=== PATIENT | female | born 1995 | race Caucasian/White ===

== ENCOUNTER 2018-10-27 11:59 | Emergency (ER) | payer BC ==
[2018-10-27] MEDS ORDERED: Ondansetron 4 MG/2 ML SDV IVPUSH ONE (14:01)
[2018-10-27] MEDS ORDERED: Sodium Chloride 0.9% 1,000 ML IV ONE (14:01)
[2018-10-27] MEDS ORDERED: Sodium Chloride 0.9% 10 ML Syringe FLUSH PRN (14:01)
[2018-10-27] MEDS ORDERED: diphenhydrAMINE 50 MG/ML SDV IVPUSH ONE (14:01)
--- NOTE | 2018-10-27 14:10 | EDM.PDOC ---
ED HPI GENERAL MEDICAL PROBLEM - General Chief Complaint: Gastrointestinal Problem Stated Complaint: 8 WKS PG. DIZZY,THROWING UP Time Seen by Provider: 10/27/18 13:47 Source of Information: Reports: Patient History Limitations: Reports: No Limitations - History of Present Illness INITIAL COMMENTS - FREE TEXT/NARRATIVE: Patient is a 23-year-old female who is approximately 8 weeks who presents to the ED with severe nausea with vomiting. This has been going on for the past few weeks. States she's been evaluated by her HYDROGEN CELL TENDER at 7 weeks with no concerns. She was started on Zofran to which the patient has been taking and continues to have episodes of emesis. States last night the emesis progressively got worse. She's been experiencing intermittent episodes of vertigo. States she has the sensation of the room spinning with body position changes and also with turning her head left to right. Symptoms come and go. Has not had associated headache, vision changes, or any focal neurological deficits associated with this. She denies any chest pain, shortness of breath, abdominal pain, painful urination, vaginal bleeding, or any additional complaints. She states this morning after vomiting last time at 0600 her urine was quite dark. She was able to drink some vitamin water only to vomit a hour later. Her urine was straw colored with admission to the ED. history 2, para 0, miscarriage 1. She has no additional past medical history and currently taking vitamins, B6, Unisom, and Zofran. She denies smoking, alcohol use, or recreational drugs. Surgical history tonsillectomy, wisdom teeth, and plastic surgery to the lip. HYDROGEN CELL TENDER specialist is Dr. Amado. - Related Data Allergies Allergy/AdvReac Type Severity Reaction Status Date / Time No Known Allergies Allergy Verified 10/27/18 13:20 Home Meds: Home Meds Meclizine [Antivert] 12.5 mg PO TID PRN #21 tab 10/27/18 [Rx] Ondansetron [Zofran ODT] 4 mg PO ASDIRECTED PRN #20 tab.dis 10/27/18 [Rx] Past Medical History - Past Surgical History HEENT Surgical History: Reports: Tonsillectomy Social & Family History - Tobacco Use Smoking Status *Q: Never Smoker Second Hand Smoke Exposure: No - Caffeine Use Caffeine Use: Reports: None - Recreational Drug Use Recreational Drug Use: No ED ROS GENERAL - Review of Systems Review Of Systems: ROS reveals no pertinent complaints other than HPI. ED EXAM - Physical Exam Exam: See Below Exam Limited By: No Limitations General Appearance: Alert, WD/WN, Mild Distress Eye Exam: Bilateral Eye: Nystagmus (none noted), PERRL, Vision Changes (none noted) Ears: Hearing Grossly Normal Nose: Normal Inspection Throat/Mouth: Normal Inspection, Normal Oropharynx, Normal Voice, No Airway Compromise Head: Atraumatic, Normocephalic Neck: Normal Inspection, Supple Respiratory/Chest: No Respiratory Distress, Lungs Clear, Normal Breath Sounds, No Accessory Muscle Use, Chest Non-Tender Cardiovascular: Normal Peripheral Pulses, Regular Rate, Rhythm GI/Abdominal Exam: Normal Bowel Sounds, Soft, Non-Tender, No Organomegaly, No Distention Back Exam: Normal Inspection. No: CVA Tenderness (L), CVA Tenderness (R) Extremities: Normal Inspection, Normal Range of Motion, Non-Tender, No Pedal Edema Neurological: Alert, Oriented, CN II-XII Intact, Normal Cognition, No Motor/ Sensory Deficits Psychiatric: Normal Affect, Normal Mood Skin Exam: Warm, Dry, Intact, Normal Color Course - Vital Signs Last Recorded V/S: Last Vital Signs Temp 98.7 F 10/27/18 13:21 Pulse 72 10/27/18 13:21 Resp 13 10/27/18 13:21 BP 98/68 10/27/18 13:21 Pulse Ox 100 10/27/18 13:21 - Orders/Labs/Meds Orders: Active Orders 24 hr Category Date Time Status Peripheral IV Care [RC] . DIRECTED Care 10/27/18 14:02 Active Peripheral IV Insertion Adult [OM.PC] Routine Oth 10/27/18 14:01 Ordered Labs: Laboratory Tests 10/27/18 10/27/18 10/27/18 Range/Units 13:35 13:35 15:45 WBC 18.76 H (3.98-10.04) K/mm3 RBC 4.68 (3.98-5.22) M/mm3 Hgb 14.1 (11.2-15.7) gm/L Hct 40.5 (34.1-44.9) % MCV 86.5 (79.4-94.8) fl MCH 30.1 (25.6-32.2) pg MCHC 34.8 (32.2-35.5) g/dl RDW Std Deviation 39.0 (36.4-46.3) fL Plt Count 193 (182-369) K/mm3 MPV 13.4 H (9.4-12.3) fl Neutrophils % (Manual) 90 H (40-60) % Band Neutrophils % 0 (0-10) % Lymphocytes % (Manual) 5 L (20-40) % Atypical Lymphs % 0 % Monocytes % (Manual) 4 (2-10) % Eosinophils % (Manual) 0 L (0.7-5.8) % Basophils % (Manual) 1 (0.1-1.2) Platelet Estimate Adequate Plt Morphology Comment RBC Morph Comment Normal Sodium 139 (136-145) mEq/L Potassium 3.8 (3.5-5.1) mEq/L Chloride 104 (98-107) mEq/L Carbon Dioxide 23 (21-32) mEq/L Anion Gap 15.8 H (5-15) BUN 7 (7-18) mg/dL Creatinine 0.7 (0.55-1.02) mg/dL Est Cr Clr Drug Dosing 115.01 mL/min Estimated GFR (MDRD) > 60 (>60) mL/min BUN/Creatinine Ratio 10.0 L (14-18) Glucose 91 (74-106) mg/dL Calcium 9.7 (8.5-10.1) mg/dL Total Bilirubin 0.6 (0.2-1.0) mg/dL AST 53 H (15-37) U/L ALT 139 H (14-59) U/L Alkaline Phosphatase 79 (46-116) U/L C-Reactive Protein 0.3 (<1.0) mg/dL Total Protein 7.3 (6.4-8.2) g/dl Albumin 3.8 (3.4-5.0) g/dl Globulin 3.5 gm/dL Albumin/Globulin Ratio 1.1 (1-2) Lipase 107 (73-393) U/L HCG, Quant 201635.0 mIU/mL Urine Color Yellow (Yellow) Urine Appearance Clear (Clear) Urine pH 6.0 (5.0-8.0) Ur Specific [place] 1.020 (1.005-1.030) Urine Protein Negative (Negative) Urine Glucose (UA) Negative (Negative) Urine Ketones 1+ H (Negative) Urine Occult Blood Negative (Negative) Urine Nitrite Negative (Negative) Urine Bilirubin Negative (Negative) Urine Urobilinogen 0.2 (0.2-1.0) Ur Leukocyte Esterase Negative (Negative) Urine RBC 0-5 (0-5) /hpf Urine WBC 0-5 (0-5) /hpf Ur Squamous Epith Cells 0-5 (0-5) /hpf Urine Bacteria Few (FEW) /hpf Urine Mucus Moderate H (FEW) /hpf Meds: Medications Discontinued Medications Generic Name Dose Route Start Last Admin Trade Name Freq PRN Reason Stop Dose Admin Diphenhydramine HCl 50 mg 10/27/18 14:01 10/27/18 14:19 Benadryl IVPUSH 10/27/18 14:02 50 mg ONETIME ONE Administration Sodium Chloride 1,000 mls @ 999 mls/hr 10/27/18 14:01 10/27/18 14:19 Normal Saline IV 10/27/18 15:01 999 mls/hr ONETIME ONE Administration Ondansetron HCl 4 mg 10/27/18 14:01 10/27/18 14:19 Zofran IVPUSH 10/27/18 14:02 4 mg ONETIME ONE Administration Sodium Chloride 10 ml 10/27/18 14:01 10/27/18 14:20 Saline Flush FLUSH 10 ml ASDIRECTED PRN Administration Keep Vein Open - Re-Assessments/Exams Free Text/Narrative Re-Assessment/Exam: On exam patient has no focal neurological deficits. Mouth is mildly dry. Will order IV with normal saline bolus 1 L, Zofran 4 mg IVP, and Benadryl 50 mg by IV. Initial labs and studies will include: CBC, chem 14, HCG quantitative, CRP, lipase, and urinalysis. Labs reviewed:WBC 18.76, Hgb 14.1, N% 90, N# 0 sodium potassium, chloride, CO2 are normal. AG mildly elevated 15.8. Creatinine 0.7. Glucose 91. AST 53 and ALT are 139. CRP normal. HCG quantitative 257,262. UA positive for ketones and moderate mucus. 1600 Reassessment, patients vitals are stable. She has had no further vertigo episodes and nausea. 1647 Per Nursing staff patient is tolerating the crackers and jello. I will discharge patient home. Return precautions discussed with the patient and . She had no further questions or concerns and agreed with plan. Discharge instructions as documented. Departure - Departure Time of Disposition: 16:59 Disposition: Home, Self-Care 01 Condition: Good Clinical Impression: Vomiting during , Vertigo, test positive, Vomiting Nausea & vomiting Qualifiers: Vomiting type: unspecified Vomiting Intractability: non-intractable Qualified Code(s): R11.2 - Nausea with vomiting, unspecified - Discharge Information Prescriptions: Meclizine [Antivert] 12.5 mg PO TID PRN #21 tab PRN Reason: Dizziness Ondansetron [Zofran ODT] 4 mg PO ASDIRECTED PRN #20 tab.dis PRN Reason: Vomiting Instructions: Eating Plan for Hyperemesis Gravidarum, Hyperemesis Gravidarum, Vertigo, [id number], Warning Signs During , Nausea and Vomiting, Adult Referrals: Sonal Thacker MD [Primary Care Provider] - Forms: ED Department Discharge Additional Instructions: Continue to drink small amounts of liquids more frequently such as: Gatorade, Powerade, Pedialyte, and/or vitamin water. Eat small amounts of crackers, Jell-O , soup as tolerated. Refrain from any items that cause nausea and vomiting. Utilize the Zofran as prescribed for nausea and vomiting. In addition for the intermittent vertigo may utilize meclizine 12.5 mg 3 times a day. PRN. Please call and schedule an appt with HYDROGEN CELL TENDER for this coming week for reevaluation. Please return to the E.D. for any new or worsening symptoms. - My Orders Last 24 Hours: My Active Orders 10/27/18 14:01 Peripheral IV Insertion Adult [OM.PC] Routine 10/27/18 14:02 Peripheral IV Care [RC] . DIRECTED - Assessment/Plan Last 24 Hours: My Active Orders 10/27/18 14:01 Peripheral IV Insertion Adult [OM.PC] Routine 10/27/18 14:02 Peripheral IV Care [RC] . DIRECTED
== END 2018-10-27 17:31 | disposition home or self-care (01) ==
LOC: JD.ED 11:59
DX: O21.9 Vomiting of pregnancy, unspecified (principal); R42 Dizziness and giddiness; Z3A.01 Less than 8 weeks gestation of pregnancy; Z98.890 Other specified postprocedural states
CPT/HCPCS: 36415; 80053; 81001; 83690; 84702; 85007; 85027; 86140; 96361; 96374; 96375; 99283; J1200; J2405; J7040

== ENCOUNTER 2019-06-07 05:14 | Inpatient (IN) | payer BC ==
[2019-06-07] MEDS ORDERED: Calcium Carbonate 500 MG Tab.Chew PO PRN (06:09)
[2019-06-07] MEDS ORDERED: Acetaminophen 325 MG Tab PO PRN (06:09)
[2019-06-07] MEDS ORDERED: Nalbuphine 10 MG/ML Syringe IVPUSH PRN (06:09)
[2019-06-07] MEDS ORDERED: Ondansetron 4 MG/2 ML SDV IVPUSH PRN (06:09)
[2019-06-07] MEDS ORDERED: Sodium Chloride 0.9% 10 ML Syringe FLUSH PRN (06:09)
[2019-06-07] MEDS ORDERED: Oxytocin/Lactated Ringers 10 UNIT/1,000 ML BAG IV SCH ×2 (06:15)
--- NOTE | 2019-06-07 07:25 | PCM.LDHP ---
L&D History of Present Illness - General Date of Service: 06/07/19 Admit Problem/Dx: Patient Status Order with Admit Dx/Problem 06/07/19 06:10 Patient Status [ADT] Routine Admission Diagnosis/Problem Admission Diagnosis/Problem Source of Information: Patient History Limitations: Reports: No Limitations - History of Present Illness Introduction:: Patient is a 24 y/o at 40 4/7 wks present with SROM/early labor. Thinks this started around 2300 yesterday. Small amounts that are slightly yellow. No other issues. - Related Data Allergies/Adverse Reactions: Allergies Allergy/AdvReac Type Severity Reaction Status Date / Time No Known Allergies Allergy Verified 06/07/19 05:25 Home Medications: Home Meds Meclizine [Antivert] 12.5 mg PO TID PRN #21 tab 10/27/18 [Rx] Ondansetron [Zofran ODT] 4 mg PO ASDIRECTED PRN #20 tab.dis 10/27/18 [Rx] Calcium Carbonate [Tums] 500 mg PO 06/07/19 [History] Past Medical History Gastrointestinal History: Reports: GERD [place]UNTER History: Reports: , Spontaneous : 2 Para: 0 LMP (Approximate): - Past Surgical History HEENT Surgical History: Reports: Oral Surgery (tooth extraction), Tonsillectomy Social & Family History - Family History Family Medical History: Noncontributory - Tobacco Use Smoking Status *Q: Never Smoker Second Hand Smoke Exposure: No - Caffeine Use Caffeine Use: Reports: Tea - Alcohol Use Alcohol Use History: No - Recreational Drug Use Recreational Drug Use: No H&P Review of Systems - Review of Systems: Review Of Systems: See Below General: Reports: No Symptoms Pulmonary: Reports: No Symptoms Cardiovascular: Reports: No Symptoms Gastrointestinal: Reports: No Symptoms Genitourinary: Reports: No Symptoms Musculoskeletal: Reports: Back Pain Psychiatric: Reports: No Symptoms Neurological: Reports: No Symptoms L&D Exam - Exam Exam: See Below - Vital Signs Vital Signs: Last Vital Signs Temp 36.6 C 06/07/19 05:32 Pulse 94 06/07/19 05:32 Resp 16 06/07/19 05:32 BP 119/74 06/07/19 05:32 Pulse Ox 99 06/07/19 05:32 Weight: 103.646 kg - OB Specific Contraction Intensity: Mild to Moderate Movement: Active Heart Tones: Present Heart Tones per Min: 145 Heart Rate (FHR) Variability: Moderate (6-25 bmp) Presentation: Vertex - Mir Score Mir Score Cervix Position: Midposition Mir Score Consistency: Soft Mir Score Effacement: >80% Mir Score Dilation: > 5 cm Mir Score Infant's Station: -1 ,0 Mir Score Total: 11 - Exam General: Alert, Oriented, Cooperative Lungs: Clear to Auscultation, Normal Respiratory Effort Cardiovascular: Regular Rate, Regular Rhythm GI/Abdominal Exam: Soft, Non-Tender Genitourinary: Normal external exam Extremities: Normal Inspection Skin: Warm, Dry, Intact - Patient Data Lab Results Last 24 hrs: Laboratory Results - last 24 hr 06/07/19 06/07/19 Range/Units 05:38 06:25 WBC 16.70 H (3.98-10.04) K/mm3 RBC 4.39 (3.98-5.22) M/mm3 Hgb 12.5 D (11.2-15.7) gm/dl Hct 38.2 (34.1-44.9) % MCV 87.0 (79.4-94.8) fl MCH 28.5 (25.6-32.2) pg MCHC 32.7 (32.2-35.5) g/dl RDW Std Deviation 44.7 (36.4-46.3) fL Plt Count 114 L D (182-369) K/mm3 MPV 12.8 H (9.4-12.3) fl Neut % (Auto) 75.8 H (34.0-71.1) % Lymph % (Auto) 13.0 L (19.3-51.7) % [place] % (Auto) 10.1 (4.7-12.5) % Eos % (Auto) 0.5 L (0.7-5.8) Baso % (Auto) 0.2 (0.1-1.2) % Neut # (Auto) 12.66 H (1.56-6.13) K/mm3 Lymph # (Auto) 2.17 (1.18-3.74) K/mm3 [place] # (Auto) 1.68 H (0.24-0.36) K/mm3 Eos # (Auto) 0.09 (0.04-0.36) K/mm3 Baso # (Auto) 0.03 (0.01-0.08) K/mm3 Manual Slide Review Normal smear Membrane Rupture Negative Result Diagrams: 06/07/19 06:25 - Problem List (1) 40 weeks gestation of SNOMED Code(s): 42490545 ICD Code: Z3A.40 - 40 WEEKS GESTATION OF Status: Acute Current Visit: Yes (2) Rh negative state in antepartum period SNOMED Code(s): 260317574 ICD Code: O26.899 - OTH RELATED CONDITIONS, UNSPECIFIED TRIMESTER; Z67.91 - UNSPECIFIED BLOOD TYPE, RH NEGATIVE Status: Acute Current Visit: Yes (3) Rubella non-immune status, antepartum SNOMED Code(s): 650898332 ICD Code: O99.89 - OTH DISEASES AND CONDITIONS COMPL PREG/CHLDBRTH; Z28.3 - UNDERIMMUNIZATION STATUS Status: Acute Current Visit: Yes (4) Premature rupture of membranes SNOMED Code(s): 38143287 ICD Code: O42.90 - TORRES ROM, 7TH0 BETW RUPT & ONST LABR, UNSP WEEKS OF GEST Status: Acute Current Visit: Yes Qualifiers: PROM onset of labor timing: unspecified duration between rupture of membranes and onset of labor PROM gestational age: full term Qualified Code( s): O42.92 - Full-term premature rupture of membranes, unspecified as to length of time between rupture and onset of labor Problem List Initiated/Reviewed/Updated: Yes Orders Last 24hrs: Active Orders 24 hr Category Date Time Status Patient Status [ADT] Routine ADT 06/07/19 06:10 Active Activity as Tolerated [RC] PFP Care 06/07/19 06:10 Active Communication Order [RC] ASDIRECTED Care 06/07/19 06:10 Active Heart Tones [RC] ASDIRECTED Care 06/07/19 06:10 Active Notify Provider [RC] PFP Care 06/07/19 06:10 Active Notify Provider [RC] PRN Care 06/07/19 06:10 Active Peripheral IV Care [RC] . DIRECTED Care 06/07/19 06:10 Active Urinary Catheter Assessment [RC] ASDIRECTED Care 06/07/19 06:09 Active Vital Signs [RC] PER UNIT ROUTINE Care 06/07/19 05:24 Active Vital Signs [RC] PER UNIT ROUTINE Care 06/07/19 06:10 Active Regular Diet [DIET] Diet 06/07/19 Breakfast Active RAPID PLASMA REAGIN,RPR [CHEM] Routine Lab 06/07/19 06:25 Received Acetaminophen [Tylenol] Med 06/07/19 06:09 Active 650 mg PO Q4H PRN Calcium Carbonate [Tums] Med 06/07/19 06:09 Active 1,000 mg PO Q2H PRN Lactated Ringers [Ringers, Lactated] 1,000 ml Med 06/07/19 06:15 Active IV ASDIRECTED Nalbuphine [Nubain] Med 06/07/19 06:09 Active 10 mg IVPUSH Q2H PRN Ondansetron [Zofran] Med 06/07/19 06:09 Active 4 mg IVPUSH Q4H PRN Oxytocin/Lactated Ringers [Pitocin in LR 10 Units/1,000 Med 06/07/19 06:15 Active ML] 10 unit in 1,000 ml IV .CONTINUOUS Oxytocin/Lactated Ringers [Pitocin in LR 10 Units/1,000 Med 06/07/19 06:15 Active ML] 10 unit in 1,000 ml IV TITRATE Sodium Chloride 0.9% [Saline Flush] Med 06/07/19 06:09 Active 10 ml FLUSH ASDIRECTED PRN Electronic Heart Tones Ext w TOCO [WOMSER] Oth 06/07/19 06:10 Ordered Routine Electronic Heart Tones Internal [WOMSER] Per Unit Oth 06/07/19 06:10 Ordered Routine Peripheral IV Insertion Adult [OM.PC] Routine Oth 06/07/19 06:10 Ordered Resuscitation Status Routine Resus Stat 06/07/19 05:24 Ordered Medication Orders Acetaminophen (Tylenol) 650 mg PO Q4H PRN PRN Reason: Pain (Mild 1-3) and fever Calcium Carbonate/Glycine (Tums) 1,000 mg PO Q2H PRN PRN Reason: Indigestion Lactated Ringer's (Ringers, Lactated) 1,000 mls @ 100 mls/hr IV ASDIRECTED DIGNA Oxytocin/Lactated Ringer's (Pitocin In Lr 10 Units/1,000 Ml) 10 unit in 1,000 mls @ 12 mls/hr IV TITRATE DIGNA; Protocol Oxytocin/Lactated Ringer's (Pitocin In Lr 10 Units/1,000 Ml) 10 unit in 1,000 mls @ 100 mls/hr IV .CONTINUOUS DIGNA Nalbuphine HCl (Nubain) 10 mg IVPUSH Q2H PRN PRN Reason: Pain Ondansetron HCl (Zofran) 4 mg IVPUSH Q4H PRN PRN Reason: Nausea/Vomiting Sodium Chloride (Saline Flush) 10 ml FLUSH ASDIRECTED PRN PRN Reason: Keep Vein Open Assessment/Plan Comment:: * Labs done * GBS negative, no need for antibiotics * Rupture done of remainder of forebag * Pain management per patient preference * Anticipate
[2019-06-07] MEDS: Lactated Ringers 1,000 ML IV SCH ×3 (14:03→15:57)
--- NOTE | 2019-06-07 14:06 | PCM.PNLD ---
Labor Progress Note - VS & Meds Vital Signs: Last Vital Signs Temp 36.6 C 06/07/19 05:32 Pulse 94 06/07/19 05:32 Resp 16 06/07/19 05:32 BP 119/74 06/07/19 05:32 Pulse Ox 99 06/07/19 05:32 Active Medications: Current Medications Acetaminophen (Tylenol) 650 mg PO Q4H PRN PRN Reason: Pain (Mild 1-3) and fever Calcium Carbonate/Glycine (Tums) 1,000 mg PO Q2H PRN PRN Reason: Indigestion Lactated Ringer's (Ringers, Lactated) 1,000 mls @ 100 mls/hr IV ASDIRECTED DIGNA Last Admin: 06/07/19 14:03 Dose: 999 mls/hr Oxytocin/Lactated Ringer's (Pitocin In Lr 10 Units/1,000 Ml) 10 unit in 1,000 mls @ 12 mls/hr IV TITRATE DIGNA; Protocol Oxytocin/Lactated Ringer's (Pitocin In Lr 10 Units/1,000 Ml) 10 unit in 1,000 mls @ 100 mls/hr IV .CONTINUOUS DIGNA Nalbuphine HCl (Nubain) 10 mg IVPUSH Q2H PRN PRN Reason: Pain Last Admin: 06/07/19 12:01 Dose: 10 mg Ondansetron HCl (Zofran) 4 mg IVPUSH Q4H PRN PRN Reason: Nausea/Vomiting Sodium Chloride (Saline Flush) 10 ml FLUSH ASDIRECTED PRN PRN Reason: Keep Vein Open - Uterine Contractions Uterine Monitoring Mode: External [place] Contraction Intensity: Moderate to Strong Uterine Resting Tone: Soft - Monitoring Monitor Mode: External Ultrasound Heart Rate (FHR) Baseline: 135 Heart Rate (FHR) Variability: Moderate (6-25 bmp) Accelerations: Present, 15x15 Decelerations: None Strip Review: Category I - Vaginal Exam Dilation (cm): 6 Effacement (Percent): 90 Station: -1 Cervical Position: Anterior - Labor Progress (Free Text) Labor Progress: Doing well, but more uncomfortable. Had dose of nubain, but not relieving pain. Requesting epidural. Otherwise will plan on sign out to Dr. Amado at 1600
[2019-06-07] MEDS ORDERED: diphenhydrAMINE 50 MG/ML SDV IVPUSH PRN (14:20)
[2019-06-07] MEDS ORDERED: ePHEDrine 50 MG/ML SDV IVPUSH PRN (14:20)
[2019-06-07] MEDS ORDERED: Bupivacaine/fentaNYL/NS 100 ML Bag EPIDUR PRN (14:20)
--- NOTE | 2019-06-07 14:51 | PCM.PREANE ---
Preanesthetic Assessment - Anesthesia/Transfusion/Family Hx Anesthesia History: Prior Anesthesia Without Reaction Transfusion History: No Prior Transfusion(s) - Review of Systems General: No Symptoms Pulmonary: No Symptoms Cardiovascular: No Symptoms Gastrointestinal: No Symptoms Neurological: No Symptoms Other: Reports: None - Physical Assessment NPO Status Date: 06/07/19 NPO Status Time: 04:00 Vital Signs: Last Vital Signs Temp 97.9 F 06/07/19 05:32 Pulse 94 06/07/19 05:32 Resp 16 06/07/19 05:32 BP 119/74 06/07/19 05:32 Pulse Ox 99 06/07/19 05:32 Height: 1.68 m Weight: 103.646 kg ASA Class: 2 Mental Status: Alert & Oriented x3 Airway Class: Mallampati = 2 Dentition: Reports: Normal Dentition Thyro-Mental Finger Breadths: 3 Mouth Opening Finger Breadths: 3 ROM/Head Extension: Full Lungs: Clear to Auscultation, Normal Respiratory Effort Cardiovascular: Regular Rate, Regular Rhythm - Lab Values: Laboratory Last Values WBC 16.70 K/mm3 (3.98-10.04) H 06/07/19 06:25 RBC 4.39 M/mm3 (3.98-5.22) 06/07/19 06:25 Hgb 12.5 gm/dl (11.2-15.7) D 06/07/19 06:25 Hct 38.2 % (34.1-44.9) 06/07/19 06:25 MCV 87.0 fl (79.4-94.8) 06/07/19 06:25 MCH 28.5 pg (25.6-32.2) 06/07/19 06:25 MCHC 32.7 g/dl (32.2-35.5) 06/07/19 06:25 RDW Std Deviation 44.7 fL (36.4-46.3) 06/07/19 06:25 Plt Count 114 K/mm3 (182-369) L D 06/07/19 06:25 MPV 12.8 fl (9.4-12.3) H 06/07/19 06:25 Neut % (Auto) 75.8 % (34.0-71.1) H 06/07/19 06:25 Lymph % (Auto) 13.0 % (19.3-51.7) L 06/07/19 06:25 [place] % (Auto) 10.1 % (4.7-12.5) 06/07/19 06:25 Eos % (Auto) 0.5 (0.7-5.8) L 06/07/19 06:25 Baso % (Auto) 0.2 % (0.1-1.2) 06/07/19 06:25 Neut # (Auto) 12.66 K/mm3 (1.56-6.13) H 06/07/19 06:25 Lymph # (Auto) 2.17 K/mm3 (1.18-3.74) 06/07/19 06:25 [place] # (Auto) 1.68 K/mm3 (0.24-0.36) H 06/07/19 06:25 Eos # (Auto) 0.09 K/mm3 (0.04-0.36) 06/07/19 06:25 Baso # (Auto) 0.03 K/mm3 (0.01-0.08) 06/07/19 06:25 Manual Slide Review Normal smear 06/07/19 06:25 Membrane Rupture Negative 06/07/19 05:38 - Allergies Allergies/Adverse Reactions: Allergies Allergy/AdvReac Type Severity Reaction Status Date / Time No Known Allergies Allergy Verified 06/07/19 05:25 - Acknowledgements Anesthesia Type Planned: Epidural ( ) Pt an Appropriate Candidate for the Planned Anesthesia: Yes Alternatives and Risks of Anesthesia Discussed w Pt/Guardian: Yes Pt/Guardian Understands and Agrees with Anesthesia Plan: Yes PreAnesthesia Questionnaire - Past Health History Medical/Surgical History: Denies Medical/Surgical History Gastrointestinal History: Reports: GERD (also exacerbated) 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: , Spontaneous Endocrine/Metabolic History: Reports: Obesity/BMI 30+ - Past Surgical History HEENT Surgical History: Reports: Oral Surgery (tooth extraction), Tonsillectomy - SUBSTANCE USE Smoking Status *Q: Never Smoker Second Hand Smoke Exposure: No Recreational Drug Use History: No - HOME MEDS Home Medications: Home Meds Meclizine [Antivert] 12.5 mg PO TID PRN #21 tab 10/27/18 [Rx] Ondansetron [Zofran ODT] 4 mg PO ASDIRECTED PRN #20 tab.dis 10/27/18 [Rx] Calcium Carbonate [Tums] 500 mg PO 06/07/19 [History] - CURRENT (IN HOUSE) MEDS Current Meds: Current Medications Acetaminophen (Tylenol) 650 mg PO Q4H PRN PRN Reason: Pain (Mild 1-3) and fever Calcium Carbonate/Glycine (Tums) 1,000 mg PO Q2H PRN PRN Reason: Indigestion Diphenhydramine HCl (Benadryl) 25 mg IVPUSH Q6H PRN PRN Reason: pruritis Ephedrine Sulfate (Ephedrine Sulfate) 5 mg IVPUSH ASDIRECTED PRN PRN Reason: Hypotension Fentanyl (Sublimaze) 100 mcg EPIDUR Q3H PRN PRN Reason: Pain Fentanyl/Bupivacaine HCl (Fentanyl/Bupivacaine/Ns 2 Mcg-0.125% 100 Ml) 100 ml EPIDUR ASDIRECTED PRN PRN Reason: Pain Lactated Ringer's (Ringers, Lactated) 1,000 mls @ 100 mls/hr IV ASDIRECTED DIGNA Last Admin: 06/07/19 14:03 Dose: 999 mls/hr Oxytocin/Lactated Ringer's (Pitocin In Lr 10 Units/1,000 Ml) 10 unit in 1,000 mls @ 12 mls/hr IV TITRATE DIGNA; Protocol Oxytocin/Lactated Ringer's (Pitocin In Lr 10 Units/1,000 Ml) 10 unit in 1,000 mls @ 100 mls/hr IV .CONTINUOUS DIGNA Nalbuphine HCl (Nubain) 10 mg IVPUSH Q2H PRN PRN Reason: Pain Last Admin: 06/07/19 12:01 Dose: 10 mg Ondansetron HCl (Zofran) 4 mg IVPUSH Q4H PRN PRN Reason: Nausea/Vomiting Sodium Chloride (Saline Flush) 10 ml FLUSH ASDIRECTED PRN PRN Reason: Keep Vein Open
[2019-06-07] MEDS: fentaNYL 100 MCG/2 ML SDV EPIDUR PRN ×2 (14:55→22:25)
--- NOTE | 2019-06-07 19:01 | PCM.PNLD ---
Labor Progress Note - VS & Meds Vital Signs: Last Vital Signs Temp 36.6 C 06/07/19 05:32 Pulse 94 06/07/19 05:32 Resp 16 06/07/19 05:32 BP 119/74 06/07/19 05:32 Pulse Ox 99 06/07/19 05:32 Active Medications: Current Medications Acetaminophen (Tylenol) 650 mg PO Q4H PRN PRN Reason: Pain (Mild 1-3) and fever Calcium Carbonate/Glycine (Tums) 1,000 mg PO Q2H PRN PRN Reason: Indigestion Diphenhydramine HCl (Benadryl) 25 mg IVPUSH Q6H PRN PRN Reason: pruritis Ephedrine Sulfate (Ephedrine Sulfate) 5 mg IVPUSH ASDIRECTED PRN PRN Reason: Hypotension Fentanyl (Sublimaze) 100 mcg EPIDUR Q3H PRN PRN Reason: Pain Last Admin: 06/07/19 14:55 Dose: 100 mcg Fentanyl/Bupivacaine HCl (Fentanyl/Bupivacaine/Ns 2 Mcg-0.125% 100 Ml) 100 ml EPIDUR ASDIRECTED PRN PRN Reason: Pain Last Admin: 06/07/19 14:55 Dose: 100 ml Lactated Ringer's (Ringers, Lactated) 1,000 mls @ 100 mls/hr IV ASDIRECTED DIGNA Last Infusion: 06/07/19 16:02 Dose: 100 mls/hr Oxytocin/Lactated Ringer's (Pitocin In Lr 10 Units/1,000 Ml) 10 unit in 1,000 mls @ 12 mls/hr IV TITRATE DIGNA; Protocol Oxytocin/Lactated Ringer's (Pitocin In Lr 10 Units/1,000 Ml) 10 unit in 1,000 mls @ 100 mls/hr IV .CONTINUOUS DIGNA Nalbuphine HCl (Nubain) 10 mg IVPUSH Q2H PRN PRN Reason: Pain Last Admin: 06/07/19 12:01 Dose: 10 mg Ondansetron HCl (Zofran) 4 mg IVPUSH Q4H PRN PRN Reason: Nausea/Vomiting Sodium Chloride (Saline Flush) 10 ml FLUSH ASDIRECTED PRN PRN Reason: Keep Vein Open - Uterine Contractions Uterine Monitoring Mode: External [place] Contraction Intensity: Moderate to Strong Uterine Resting Tone: Soft - Monitoring Monitor Mode: External Ultrasound Heart Rate (FHR) Baseline: 135 Heart Rate (FHR) Variability: Moderate (6-25 bmp) Accelerations: Present, 15x15 Decelerations: None Strip Review: Category I - Vaginal Exam Dilation (cm): 10 Effacement (Percent): 100 Station: 0 Cervical Position: Anterior - Labor Progress (Free Text) Labor Progress: Pushing well. Comfortable with epidural.
[2019-06-07] MEDS ORDERED: Misoprostol 200 MCG Tab ONE (21:26)
--- NOTE | 2019-06-07 21:58 | PCM.SN ---
- Free Text/Narrative Note: Stage I - patient presented with labor. Epidural for anesthesia. AROM of meconium stained fluid. Progressed slowly to complete with overall reassuring FHT. Stage II - Patient pushed 3 hours and expressed desire for assistance. With head at +2/5 station in JOSE M position vacuum applied. Over three contractions with good maternal effort head brought down to . With continued maternal effort without vacuum head delivered. Shoulder dystocia reduced with odessa and suprapubic pressure over 90 seconds. Cord clamped and cut and limp baby taken to warmer. Stage III - of placenta. Significant bleeding immediately. Pitocin initiated. Bimanual exam revealed placental fragments. Fentanyl given and manual evacuation of clot and fragments of placenta on anterior wall of uterus. Buccal cytotec x 600 given. CBC ordered. Bladder drained. Small first degree laceration repaired with 3-0 vicryl. EBL 800
[2019-06-07] MEDS ORDERED: Ibuprofen 600 MG Tab PO PRN (23:58)
[2019-06-08] MEDS: Witch Hazel Medicated Pads 40/Jar TOP PRN (00:15)
[2019-06-08] MEDS: Benzocaine/Menthol 20%-0.5% Spray 56 GM Canister TOP PRN (00:15)
[2019-06-08] MEDS ORDERED: cefTRIAXone 2 GM in Sodium Chloride 0.9% 100 ML IV ONE ×2 (03:47→03:58)
[2019-06-08] MEDS ORDERED: Iopamidol 755 MG/ML 50 ML Bottle IARTIC ONE (07:01)
[2019-06-08] MEDS ORDERED: Sodium Chloride 0.9% 10 ML Syringe FLUSH PRN (07:01)
[2019-06-08] MEDS ORDERED: Sodium Chloride 0.9% 45 ML IV SCH (07:15)
--- NOTE | 2019-06-08 07:35 | PCM.PNPP ---
- General Info Date of Service: 06/08/19 Subjective Update: 24 year old [id number] s/p with shoulder dystocia, hemorrhage and retained placental fragment. Now with significant shortness of breath, tachypnea and occasionally decreased oxygen saturations. Difficulty with activity. Functional Status: Reports: Pain Controlled - Review of Systems General: Reports: No Symptoms HEENT: Reports: No Symptoms Pulmonary: Reports: No Symptoms Cardiovascular: Reports: No Symptoms Gastrointestinal: Reports: No Symptoms Genitourinary: Reports: No Symptoms Musculoskeletal: Reports: No Symptoms Skin: Reports: No Symptoms Neurological: Reports: No Symptoms Psychiatric: Reports: No Symptoms - General Info Date of Service: 06/08/19 - Patient Data Vital Signs - Most Recent: Last Vital Signs Temp 37.7 C 06/08/19 03:41 Pulse 129 H 06/08/19 03:41 Resp 22 H 06/08/19 03:41 BP 116/88 06/08/19 03:41 Pulse Ox 94 L 06/08/19 03:41 Weight - Most Recent: 103.646 kg I&O - Last 24 Hours: Intake & Output 06/07/19 06/08/19 06/08/19 22:59 06:59 14:59 Intake Total 1000 1600 Output Total 300 Balance 700 1600 Lab Results - Last 24 Hours: Laboratory Results - last 24 hr 06/07/19 06/07/19 06/08/19 Range/Units 06:25 21:50 04:06 WBC 27.80 H (3.98-10.04) K/mm3 RBC 3.88 L (3.98-5.22) M/mm3 Hgb 11.1 L (11.2-15.7) gm/dl Hct 34.1 (34.1-44.9) % MCV 87.9 (79.4-94.8) fl MCH 28.6 (25.6-32.2) pg MCHC 32.6 (32.2-35.5) g/dl RDW Std Deviation 44.4 (36.4-46.3) fL Plt Count 139 L (182-369) K/mm3 MPV 13.3 H (9.4-12.3) fl Neut % (Auto) 86.1 H (34.0-71.1) % Lymph % (Auto) 3.8 L (19.3-51.7) % [place] % (Auto) 9.6 (4.7-12.5) % Eos % (Auto) 0 L (0.7-5.8) Baso % (Auto) 0.1 (0.1-1.2) % Neut # (Auto) 23.94 H (1.56-6.13) K/mm3 Lymph # (Auto) 1.06 L (1.18-3.74) K/mm3 [place] # (Auto) 2.67 H (0.24-0.36) K/mm3 Eos # (Auto) 0.00 L (0.04-0.36) K/mm3 Baso # (Auto) 0.02 (0.01-0.08) K/mm3 Manual Slide Review Abnormal smear RPR Non-reactive (NONREACTIVE) Blood Type A NEGATIVE Gel Antibody Screen Positive Screen 3 ros/5 flds - neg RhIG Candidate? Yes Rhogam Indicated Yes, baby rh pos H 06/08/19 Range/Units 04:06 WBC 28.19 H (3.98-10.04) K/mm3 RBC 3.31 L (3.98-5.22) M/mm3 Hgb 9.3 L D (11.2-15.7) gm/dl Hct 29.0 L (34.1-44.9) % MCV 87.6 (79.4-94.8) fl MCH 28.1 (25.6-32.2) pg MCHC 32.1 L (32.2-35.5) g/dl RDW Std Deviation 43.2 (36.4-46.3) fL Plt Count 140 L (182-369) K/mm3 MPV 13.2 H (9.4-12.3) fl Neut % (Auto) 80.8 H (34.0-71.1) % Lymph % (Auto) 5.8 L (19.3-51.7) % [place] % (Auto) 12.9 H (4.7-12.5) % Eos % (Auto) 0 L (0.7-5.8) Baso % (Auto) 0.1 (0.1-1.2) % Neut # (Auto) 22.77 H (1.56-6.13) K/mm3 Lymph # (Auto) 1.63 (1.18-3.74) K/mm3 [place] # (Auto) 3.65 H (0.24-0.36) K/mm3 Eos # (Auto) 0.00 L (0.04-0.36) K/mm3 Baso # (Auto) 0.02 (0.01-0.08) K/mm3 Manual Slide Review Abnormal smear RPR (NONREACTIVE) Blood Type Gel Antibody Screen Screen RhIG Candidate? Rhogam Indicated Med Orders - Current: Current Medications Benzocaine/Menthol (Dermoplast Pain Relief [place]) 0 gm TOP ASDIRECTED PRN PRN Reason: Perineal Comfort Measure Last Admin: 06/08/19 00:15 Dose: 1 can Sodium Chloride (Normal Saline) 45 mls @ 40 mls/hr IV ASDIRECTED DIGNA Ibuprofen (Motrin) 600 mg PO Q6H PRN PRN Reason: Mild pain or fever Sodium Chloride (Saline Flush) 10 ml FLUSH ONETIME PRN PRN Reason: Keep Vein Open Witaraseli [place] (Tucks) 1 pad TOP ASDIRECTED PRN PRN Reason: Pain Last Admin: 06/08/19 00:15 Dose: 1 tub Discontinued Medications Acetaminophen (Tylenol) 650 mg PO Q4H PRN PRN Reason: Pain (Mild 1-3) and fever Calcium Carbonate/Glycine (Tums) 1,000 mg PO Q2H PRN PRN Reason: Indigestion Diphenhydramine HCl (Benadryl) 25 mg IVPUSH Q6H PRN PRN Reason: pruritis Ephedrine Sulfate (Ephedrine Sulfate) 5 mg IVPUSH ASDIRECTED PRN PRN Reason: Hypotension Fentanyl (Sublimaze) 100 mcg EPIDUR Q3H PRN PRN Reason: Pain Last Admin: 06/07/19 22:25 Dose: 50 mcg Fentanyl/Bupivacaine HCl (Fentanyl/Bupivacaine/Ns 2 Mcg-0.125% 100 Ml) 100 ml EPIDUR ASDIRECTED PRN PRN Reason: Pain Last Admin: 06/07/19 14:55 Dose: 100 ml Lactated Ringer's (Ringers, Lactated) 1,000 mls @ 100 mls/hr IV ASDIRECTED DIGNA Last Infusion: 06/07/19 16:02 Dose: 100 mls/hr Oxytocin/Lactated Ringer's (Pitocin In Lr 10 Units/1,000 Ml) 10 unit in 1,000 mls @ 12 mls/hr IV TITRATE DIGNA; Protocol Oxytocin/Lactated Ringer's (Pitocin In Lr 10 Units/1,000 Ml) 10 unit in 1,000 mls @ 100 mls/hr IV .CONTINUOUS DIGNA Last Admin: 06/07/19 21:23 Dose: 100 mls/hr Ceftriaxone Sodium 2 gm/ (Sodium Chloride) 100 mls @ 200 mls/hr IV ONETIME ONE Stop: 06/08/19 04:16 Last Admin: 06/08/19 04:00 Dose: Not Given Ceftriaxone Sodium 2 gm/ (Sodium Chloride) 100 mls @ 200 mls/hr IV ONETIME ONE Stop: 06/08/19 04:27 Last Admin: 06/08/19 04:18 Dose: 200 mls/hr Iopamidol (Isovue-370 (76%)) 150 ml IARTIC ONETIME ONE Stop: 06/08/19 07:02 Misoprostol (Cytotec) Confirm Administered Dose 200 mcg .ROUTE .STK-MED ONE Stop: 06/07/19 21:27 Last Admin: 06/07/19 22:20 Dose: 600 mcg Nalbuphine HCl (Nubain) 10 mg IVPUSH Q2H PRN PRN Reason: Pain Last Admin: 06/07/19 12:01 Dose: 10 mg Ondansetron HCl (Zofran) 4 mg IVPUSH Q4H PRN PRN Reason: Nausea/Vomiting Sodium Chloride (Saline Flush) 10 ml FLUSH ASDIRECTED PRN PRN Reason: Keep Vein Open - Infant Interaction Disposition, : [place] at Bedside (pending isolette to move to nursery) Infant Interaction: Holding Infant Feeding: Breastfed ; Nursed Well Support Person: - Recovery Exam Fundal Tone: Firm Fundal Level: At Umbilicus Fundal Placement: Midline Lochia Amount: Moderate Lochia Color: Rubra/Red Episiotomy/Laceration: Approximated Bladder Status: Voiding Urinary Elimination: Voided - Exam Quality Assessment: No: Supplemental Oxygen General: Alert, Oriented HEENT: Pupils Equal, Pupils Reactive Neck: Supple Lungs: Clear to Auscultation, Other (somewhat tachypnic) Cardiovascular: Regular Rate, Regular Rhythm GI/Abdominal Exam: Normal Bowel Sounds, Soft, Non-Tender, No Organomegaly Extremities: Normal Inspection, Normal Range of Motion, Non-Tender Skin: Warm, Dry, Intact Neurological: No New Focal Deficit Psy/Mental Status: Alert, Normal Affect - Problem List Review Problem List Initiated/Reviewed/Updated: Yes - My Orders Last 24 Hours: My Active Orders 06/07/19 23:58 Activity as Tolerated [RC] PER UNIT ROUTINE Vital Signs [RC] 09,15,21,03 Benzocaine/Menthol [Dermoplast Pain Relief [place]] See Dose Instructions TOP ASDIRECTED PRN Ibuprofen [Motrin] 600 mg PO Q6H PRN witch Sourav [Tucks] 1 pad TOP ASDIRECTED PRN Assess Lochia [WOMSER] Per Unit Routine Assess Uterine Involution [WOMSER] Per Unit Routine Breast Pump [WOMSER] Per Unit Routine Heat Therapy [OM.PC] PRN Medication Administration Instruction [OM.PC] Routine Perineal Care [OM.PC] Per Unit Routine Sitz Bath [OM.PC] Per Unit Routine 06/08/19 04:06 ANTIBODY IDENTIFICATION [BBK] Routine SCREEN [BBK] Routine RH IMMUNE GLOBULIN [BBK] Routine RHOGAM, [RHIG WORKUP, ] [BBK] Routine 06/08/19 05:01 PATIENT RETYPE [BBK] Routine 06/08/19 06:48 CTA Chest W WO Contrast [Ang Chest] [CT] Stat 06/08/19 06:50 CORONAVIRUS COVID-19 PCR PHL Stat 06/08/19 23:58 Heat Therapy [OM.PC] PRN - Assessment Assessment:: PPD1 with worsening shortness of breath, slight anemia and tachypnea. -CT angio to evaluate for pulmonary edema and PE -Covid-19 testing -q6 labs - cbc and cmp - family notified of covid testing and ramifications with care
[2019-06-08] MEDS: Acetaminophen 325 MG Tab PO PRN ×2 (11:31→17:42)
--- NOTE | 2019-06-08 11:34 | PCM.PNPP ---
- General Info Date of Service: 06/08/19 Subjective Update: Only complaint significant shortness of breath. No pain. No chest pain or palpitations. Functional Status: Reports: Pain Controlled, Tolerating Diet, Urinating. Denies : Ambulating - Review of Systems General: Reports: No Symptoms HEENT: Reports: No Symptoms Pulmonary: Reports: Shortness of Breath. Denies: Pleuritic Chest Pain, Wheezing Cardiovascular: Reports: No Symptoms Gastrointestinal: Reports: No Symptoms Genitourinary: Reports: No Symptoms Musculoskeletal: Reports: No Symptoms Skin: Reports: No Symptoms Neurological: Reports: No Symptoms Psychiatric: Reports: No Symptoms - General Info Date of Service: 06/08/19 - Patient Data Vital Signs - Most Recent: Last Vital Signs Temp 36.7 C 06/08/19 10:14 Pulse 88 06/08/19 10:14 Resp 28 H 06/08/19 10:14 BP 95/61 06/08/19 10:14 Pulse Ox 94 L 06/08/19 10:14 Weight - Most Recent: 103.646 kg I&O - Last 24 Hours: Intake & Output 06/07/19 06/08/19 06/08/19 22:59 06:59 14:59 Intake Total 1000 1600 1 Output Total 300 Balance 700 1600 1 Lab Results - Last 24 Hours: Laboratory Results - last 24 hr 06/07/19 06/07/19 06/08/19 Range/Units 06:25 21:50 04:06 WBC 27.80 H (3.98-10.04) K/mm3 RBC 3.88 L (3.98-5.22) M/mm3 Hgb 11.1 L (11.2-15.7) gm/dl Hct 34.1 (34.1-44.9) % MCV 87.9 (79.4-94.8) fl MCH 28.6 (25.6-32.2) pg MCHC 32.6 (32.2-35.5) g/dl RDW Std Deviation 44.4 (36.4-46.3) fL Plt Count 139 L (182-369) K/mm3 MPV 13.3 H (9.4-12.3) fl Neut % (Auto) 86.1 H (34.0-71.1) % Lymph % (Auto) 3.8 L (19.3-51.7) % [place] % (Auto) 9.6 (4.7-12.5) % Eos % (Auto) 0 L (0.7-5.8) Baso % (Auto) 0.1 (0.1-1.2) % Neut # (Auto) 23.94 H (1.56-6.13) K/mm3 Lymph # (Auto) 1.06 L (1.18-3.74) K/mm3 [place] # (Auto) 2.67 H (0.24-0.36) K/mm3 Eos # (Auto) 0.00 L (0.04-0.36) K/mm3 Baso # (Auto) 0.02 (0.01-0.08) K/mm3 Manual Slide Review Abnormal smear RPR Non-reactive (NONREACTIVE) Blood Type A NEGATIVE Gel Antibody Screen Positive Screen 3 ros/5 flds - neg RhIG Candidate? Yes Rhogam Indicated Yes, baby rh pos H 06/08/19 Range/Units 04:06 WBC 28.19 H (3.98-10.04) K/mm3 RBC 3.31 L (3.98-5.22) M/mm3 Hgb 9.3 L D (11.2-15.7) gm/dl Hct 29.0 L (34.1-44.9) % MCV 87.6 (79.4-94.8) fl MCH 28.1 (25.6-32.2) pg MCHC 32.1 L (32.2-35.5) g/dl RDW Std Deviation 43.2 (36.4-46.3) fL Plt Count 140 L (182-369) K/mm3 MPV 13.2 H (9.4-12.3) fl Neut % (Auto) 80.8 H (34.0-71.1) % Lymph % (Auto) 5.8 L (19.3-51.7) % [place] % (Auto) 12.9 H (4.7-12.5) % Eos % (Auto) 0 L (0.7-5.8) Baso % (Auto) 0.1 (0.1-1.2) % Neut # (Auto) 22.77 H (1.56-6.13) K/mm3 Lymph # (Auto) 1.63 (1.18-3.74) K/mm3 [place] # (Auto) 3.65 H (0.24-0.36) K/mm3 Eos # (Auto) 0.00 L (0.04-0.36) K/mm3 Baso # (Auto) 0.02 (0.01-0.08) K/mm3 Manual Slide Review Abnormal smear RPR (NONREACTIVE) Blood Type Gel Antibody Screen Screen RhIG Candidate? Rhogam Indicated Micro Results - Last 24 Hours: Microbiology 06/08/19 07:50 Respiratory Syncytial Virus Ag Scrn - Final Nasopharyngeal Swab NEGATIVE RSV ANTIGEN REFERENCE RANGE: NEGATIVE 06/08/19 07:50 Influenza Type A Antigen Screen - Final Nasopharyngeal Swab NEGATIVE INFLUENZA A VIRUS AG REFERENCE RANGE: NEGATIVE Influenza Type B Antigen Screen - Final NEGATIVE INFLUENZA B VIRUS AG REFERENCE RANGE: NEGATIVE Med Orders - Current: Current Medications Acetaminophen (Tylenol) 650 mg PO Q4H PRN PRN Reason: Pain Benzocaine/Menthol (Dermoplast Pain Relief [place]) 0 gm TOP ASDIRECTED PRN PRN Reason: Perineal Comfort Measure Last Admin: 06/08/19 00:15 Dose: 1 can Sodium Chloride (Normal Saline) 45 mls @ 40 mls/hr IV ASDIRECTED DIGNA Last Admin: 06/08/19 08:46 Dose: 40 mls/hr Sodium Chloride (Saline Flush) 10 ml FLUSH ONETIME PRN PRN Reason: Keep Vein Open Last Admin: 06/08/19 08:46 Dose: 10 ml Witch Sourav (Tucks) 1 pad TOP ASDIRECTED PRN PRN Reason: Pain Last Admin: 06/08/19 00:15 Dose: 1 tub Discontinued Medications Acetaminophen (Tylenol) 650 mg PO Q4H PRN PRN Reason: Pain (Mild 1-3) and fever Calcium Carbonate/Glycine (Tums) 1,000 mg PO Q2H PRN PRN Reason: Indigestion Diphenhydramine HCl (Benadryl) 25 mg IVPUSH Q6H PRN PRN Reason: pruritis Ephedrine Sulfate (Ephedrine Sulfate) 5 mg IVPUSH ASDIRECTED PRN PRN Reason: Hypotension Fentanyl (Sublimaze) 100 mcg EPIDUR Q3H PRN PRN Reason: Pain Last Admin: 06/07/19 22:25 Dose: 50 mcg Fentanyl/Bupivacaine HCl (Fentanyl/Bupivacaine/Ns 2 Mcg-0.125% 100 Ml) 100 ml EPIDUR ASDIRECTED PRN PRN Reason: Pain Last Admin: 06/07/19 14:55 Dose: 100 ml Lactated Ringer's (Ringers, Lactated) 1,000 mls @ 100 mls/hr IV ASDIRECTED DIGNA Last Infusion: 06/07/19 16:02 Dose: 100 mls/hr Oxytocin/Lactated Ringer's (Pitocin In Lr 10 Units/1,000 Ml) 10 unit in 1,000 mls @ 12 mls/hr IV TITRATE DIGNA; Protocol Oxytocin/Lactated Ringer's (Pitocin In Lr 10 Units/1,000 Ml) 10 unit in 1,000 mls @ 100 mls/hr IV .CONTINUOUS DIGNA Last Admin: 06/07/19 21:23 Dose: 100 mls/hr Ceftriaxone Sodium 2 gm/ (Sodium Chloride) 100 mls @ 200 mls/hr IV ONETIME ONE Stop: 06/08/19 04:16 Last Admin: 06/08/19 04:00 Dose: Not Given Ceftriaxone Sodium 2 gm/ (Sodium Chloride) 100 mls @ 200 mls/hr IV ONETIME ONE Stop: 06/08/19 04:27 Last Admin: 06/08/19 04:18 Dose: 200 mls/hr Ibuprofen (Motrin) 600 mg PO Q6H PRN PRN Reason: Mild pain or fever Iopamidol (Isovue-370 (76%)) 150 ml IARTIC ONETIME ONE Stop: 06/08/19 07:02 Last Admin: 06/08/19 08:45 Dose: 150 ml Misoprostol (Cytotec) Confirm Administered Dose 200 mcg .ROUTE .STK-MED ONE Stop: 06/07/19 21:27 Last Admin: 06/07/19 22:20 Dose: 600 mcg Nalbuphine HCl (Nubain) 10 mg IVPUSH Q2H PRN PRN Reason: Pain Last Admin: 06/07/19 12:01 Dose: 10 mg Ondansetron HCl (Zofran) 4 mg IVPUSH Q4H PRN PRN Reason: Nausea/Vomiting Sodium Chloride (Saline Flush) 10 ml FLUSH ASDIRECTED PRN PRN Reason: Keep Vein Open - Infant Interaction Disposition, : to Nursery Infant Feeding: Other (see below) (pumping) Support Person: - Recovery Exam Fundal Tone: Firm Fundal Level: At Umbilicus Fundal Placement: Midline Lochia Amount: Moderate Lochia Color: Rubra/Red Episiotomy/Laceration: Approximated Bladder Status: Voiding Urinary Elimination: Voided - Exam General: Alert, Oriented HEENT: Pupils Equal Neck: Supple Lungs: Clear to Auscultation, Normal Respiratory Effort Cardiovascular: Regular Rate, Regular Rhythm GI/Abdominal Exam: Normal Bowel Sounds, Soft, Non-Tender, No Organomegaly, No Distention, No Abnormal Bruit, No Mass, Pelvis Stable Extremities: Normal Inspection, Normal Range of Motion, No Pedal Edema, Normal Capillary Refill Neurological: No New Focal Deficit Psy/Mental Status: Alert, Normal Affect, Normal Mood - Problem List Review Problem List Initiated/Reviewed/Updated: Yes - My Orders Last 24 Hours: My Active Orders 06/07/19 23:58 Activity as Tolerated [RC] PER UNIT ROUTINE Vital Signs [RC] Q1HR Benzocaine/Menthol [Dermoplast Pain Relief [place]] See Dose Instructions TOP ASDIRECTED PRN witaraseli becketteL [Tucks] 1 pad TOP ASDIRECTED PRN Assess Lochia [WOMSER] Per Unit Routine Assess Uterine Involution [WOMSER] Per Unit Routine Breast Pump [WOMSER] Per Unit Routine Heat Therapy [OM.PC] PRN Medication Administration Instruction [OM.PC] Routine Perineal Care [OM.PC] Per Unit Routine Sitz Bath [OM.PC] Per Unit Routine 06/08/19 04:06 ANTIBODY IDENTIFICATION [BBK] Routine SCREEN [BBK] Routine RH IMMUNE GLOBULIN [BBK] Routine RHOGAM, [RHIG WORKUP, ] [BBK] Routine 06/08/19 06:48 CTA Chest W WO Contrast [Ang Chest] [CT] Stat 06/08/19 07:24 Isolation [COMM] Routine 06/08/19 07:35 Isolation [COMM] Routine 06/08/19 07:50 CORONAVIRUS COVID-19 PCR PHL Stat 06/08/19 10:00 Antiembolic Devices [RC] PER UNIT ROUTINE Pulse Oximetry Continuous Monitoring [OM.PC] Routine SCD [Sequential Compression Device] [OM.PC] Routine 06/08/19 10:58 CBC WITH MANUAL DIFF [HEME] Routine 06/08/19 10:59 COMPREHENSIVE METABOLIC PN,CMP [CHEM] Routine CRP [C-REACTIVE PROTEIN] [CHEM] Routine LACTATE DEHYDROGENASE,LDH [CHEM] Routine 06/08/19 11:00 FERRITIN [CHEM] Routine 06/08/19 11:07 PROCALCITONIN [REF] Routine 06/08/19 11:16 Acetaminophen [Tylenol] 650 mg PO Q4H PRN 06/08/19 23:58 Heat Therapy [OM.PC] PRN 06/08/19 Lunch Regular Diet [DIET] - Assessment Assessment:: Doing reasonably well - saturations 96-99 on room air now. -afebrile -labs pending. -pain controlled and minimal lochia
--- NOTE | 2019-06-08 18:34 | PCM.PNPP ---
- General Info Date of Service: 06/08/19 Functional Status: Reports: Pain Controlled, Other (moderate lochia, shortness of breath with speech and exertion) - Review of Systems General: Denies: Fever, Weakness, Night Sweats HEENT: Reports: No Symptoms Pulmonary: Reports: No Symptoms Cardiovascular: Reports: No Symptoms Gastrointestinal: Reports: No Symptoms. Denies: Constipation, Diarrhea, Nausea , Vomiting Genitourinary: Reports: No Symptoms Musculoskeletal: Reports: No Symptoms Skin: Reports: No Symptoms Neurological: Reports: No Symptoms Psychiatric: Reports: No Symptoms - General Info Date of Service: 06/08/19 - Patient Data Vital Signs - Most Recent: Last Vital Signs Temp 36.5 C 06/08/19 16:30 Pulse 89 06/08/19 16:31 Resp 32 H 06/08/19 16:30 BP 93/54 L 06/08/19 16:31 Pulse Ox 98 06/08/19 16:31 Weight - Most Recent: 103.646 kg I&O - Last 24 Hours: Intake & Output 06/08/19 06/08/19 06/08/19 06:59 14:59 22:59 Intake Total 1600 121 800 Output Total 550 Balance 1600 121 250 Lab Results - Last 24 Hours: Laboratory Results - last 24 hr 06/07/19 06/07/19 06/08/19 Range/Units 06:25 21:50 04:06 WBC 27.80 H (3.98-10.04) K/mm3 RBC 3.88 L (3.98-5.22) M/mm3 Hgb 11.1 L (11.2-15.7) gm/dl Hct 34.1 (34.1-44.9) % MCV 87.9 (79.4-94.8) fl MCH 28.6 (25.6-32.2) pg MCHC 32.6 (32.2-35.5) g/dl RDW Std Deviation 44.4 (36.4-46.3) fL Plt Count 139 L (182-369) K/mm3 MPV 13.3 H (9.4-12.3) fl Neut % (Auto) 86.1 H (34.0-71.1) % Lymph % (Auto) 3.8 L (19.3-51.7) % [place] % (Auto) 9.6 (4.7-12.5) % Eos % (Auto) 0 L (0.7-5.8) Baso % (Auto) 0.1 (0.1-1.2) % Neut # (Auto) 23.94 H (1.56-6.13) K/mm3 Lymph # (Auto) 1.06 L (1.18-3.74) K/mm3 [place] # (Auto) 2.67 H (0.24-0.36) K/mm3 Eos # (Auto) 0.00 L (0.04-0.36) K/mm3 Baso # (Auto) 0.02 (0.01-0.08) K/mm3 Neutrophils % (Manual) (40-60) % Band Neutrophils % (0-10) % Lymphocytes % (Manual) (20-40) % Atypical Lymphs % % Monocytes % (Manual) (2-10) % Eosinophils % (Manual) (0.7-5.8) % Basophils % (Manual) (0.1-1.2) Manual Slide Review Abnormal smear Toxic Granulation Platelet Estimate Plt Morphology Comment Hypochromasia Anisocytosis Microcytosis RBC Morph Comment Sodium (136-145) mEq/L Potassium (3.5-5.1) mEq/L Chloride (98-107) mEq/L Carbon Dioxide (21-32) mEq/L Anion Gap (5-15) BUN (7-18) mg/dL Creatinine (0.55-1.02) mg/dL Est Cr Clr Drug Dosing mL/min Estimated GFR (MDRD) (>60) mL/min BUN/Creatinine Ratio (14-18) Glucose (74-106) mg/dL Calcium (8.5-10.1) mg/dL Ferritin (8-252) ng/ml Total Bilirubin (0.2-1.0) mg/dL AST (15-37) U/L ALT (14-59) U/L Alkaline Phosphatase (46-116) U/L Lactate Dehydrogenase (81-234) U/L C-Reactive Protein (<1.0) mg/dL Total Protein (6.4-8.2) g/dl Albumin (3.4-5.0) g/dl Globulin gm/dL Albumin/Globulin Ratio (1-2) RPR Non-reactive (NONREACTIVE) Blood Type A NEGATIVE Gel Antibody Screen Positive Screen 3 ros/5 flds - neg RhIG Candidate? Yes Rhogam Indicated Yes, baby rh pos H 06/08/19 06/08/19 06/08/19 Range/Units 04:06 11:30 11:30 WBC 28.19 H 23.23 H (3.98-10.04) K/mm3 RBC 3.31 L 3.16 L (3.98-5.22) M/mm3 Hgb 9.3 L D 9.1 L (11.2-15.7) gm/dl Hct 29.0 L 27.9 L (34.1-44.9) % MCV 87.6 88.3 (79.4-94.8) fl MCH 28.1 28.8 (25.6-32.2) pg MCHC 32.1 L 32.6 (32.2-35.5) g/dl RDW Std Deviation 43.2 44.7 (36.4-46.3) fL Plt Count 140 L 132 L (182-369) K/mm3 MPV 13.2 H 12.9 H (9.4-12.3) fl Neut % (Auto) 80.8 H (34.0-71.1) % Lymph % (Auto) 5.8 L (19.3-51.7) % [place] % (Auto) 12.9 H (4.7-12.5) % Eos % (Auto) 0 L (0.7-5.8) Baso % (Auto) 0.1 (0.1-1.2) % Neut # (Auto) 22.77 H (1.56-6.13) K/mm3 Lymph # (Auto) 1.63 (1.18-3.74) K/mm3 [place] # (Auto) 3.65 H (0.24-0.36) K/mm3 Eos # (Auto) 0.00 L (0.04-0.36) K/mm3 Baso # (Auto) 0.02 (0.01-0.08) K/mm3 Neutrophils % (Manual) 83 H (40-60) % Band Neutrophils % 0 (0-10) % Lymphocytes % (Manual) 9 L (20-40) % Atypical Lymphs % 0 % Monocytes % (Manual) 8 (2-10) % Eosinophils % (Manual) 0 L (0.7-5.8) % Basophils % (Manual) 0 L (0.1-1.2) Manual Slide Review Abnormal smear Toxic Granulation Platelet Estimate Adequate Plt Morphology Comment See note Hypochromasia 2+ moderate Anisocytosis 1+ slight Microcytosis 2+ moderate RBC Morph Comment Abnormal Sodium 138 (136-145) mEq/L Potassium 3.7 (3.5-5.1) mEq/L Chloride 106 (98-107) mEq/L Carbon Dioxide 22 (21-32) mEq/L Anion Gap 13.7 (5-15) BUN 8 (7-18) mg/dL Creatinine 0.8 (0.55-1.02) mg/dL Est Cr Clr Drug Dosing 99.76 mL/min Estimated GFR (MDRD) > 60 (>60) mL/min BUN/Creatinine Ratio 10.0 L (14-18) Glucose 118 H (74-106) mg/dL Calcium 8.3 L (8.5-10.1) mg/dL Ferritin (8-252) ng/ml Total Bilirubin 0.6 (0.2-1.0) mg/dL AST 24 (15-37) U/L ALT 16 (14-59) U/L Alkaline Phosphatase 137 H (46-116) U/L Lactate Dehydrogenase 246 H (81-234) U/L C-Reactive Protein 10.4 H* (<1.0) mg/dL Total Protein 5.1 L (6.4-8.2) g/dl Albumin 2.0 L (3.4-5.0) g/dl Globulin 3.1 gm/dL Albumin/Globulin Ratio 0.7 L (1-2) RPR (NONREACTIVE) Blood Type Gel Antibody Screen Screen RhIG Candidate? Rhogam Indicated 06/08/19 06/08/19 06/08/19 Range/Units 11:30 17:12 17:12 WBC 21.54 H (3.98-10.04) K/mm3 RBC 3.00 L (3.98-5.22) M/mm3 Hgb 8.5 L (11.2-15.7) gm/dl Hct 26.6 L (34.1-44.9) % MCV 88.7 (79.4-94.8) fl MCH 28.3 (25.6-32.2) pg MCHC 32.0 L (32.2-35.5) g/dl RDW Std Deviation 44.6 (36.4-46.3) fL Plt Count 132 L (182-369) K/mm3 MPV 12.9 H (9.4-12.3) fl Neut % (Auto) (34.0-71.1) % Lymph % (Auto) (19.3-51.7) % [place] % (Auto) (4.7-12.5) % Eos % (Auto) (0.7-5.8) Baso % (Auto) (0.1-1.2) % Neut # (Auto) (1.56-6.13) K/mm3 Lymph # (Auto) (1.18-3.74) K/mm3 [place] # (Auto) (0.24-0.36) K/mm3 Eos # (Auto) (0.04-0.36) K/mm3 Baso # (Auto) (0.01-0.08) K/mm3 Neutrophils % (Manual) 74 H (40-60) % Band Neutrophils % 0 (0-10) % Lymphocytes % (Manual) 17 L (20-40) % Atypical Lymphs % 0 % Monocytes % (Manual) 9 (2-10) % Eosinophils % (Manual) 0 L (0.7-5.8) % Basophils % (Manual) 0 L (0.1-1.2) Manual Slide Review Toxic Granulation 2+ moderate Platelet Estimate Adequate Plt Morphology Comment Normal Hypochromasia 2+ moderate Anisocytosis 2+ moderate Microcytosis RBC Morph Comment Not Reportable Sodium 138 (136-145) mEq/L Potassium 4.0 (3.5-5.1) mEq/L Chloride 107 (98-107) mEq/L Carbon Dioxide 22 (21-32) mEq/L Anion Gap 13.0 (5-15) BUN 9 (7-18) mg/dL Creatinine 0.7 (0.55-1.02) mg/dL Est Cr Clr Drug Dosing 114.01 mL/min Estimated GFR (MDRD) > 60 (>60) mL/min BUN/Creatinine Ratio 12.9 L (14-18) Glucose 81 (74-106) mg/dL Calcium 8.3 L (8.5-10.1) mg/dL Ferritin 25 (8-252) ng/ml Total Bilirubin 0.3 (0.2-1.0) mg/dL AST 27 (15-37) U/L ALT 16 (14-59) U/L Alkaline Phosphatase 127 H (46-116) U/L Lactate Dehydrogenase (81-234) U/L C-Reactive Protein (<1.0) mg/dL Total Protein 5.0 L (6.4-8.2) g/dl Albumin 1.9 L (3.4-5.0) g/dl Globulin 3.1 gm/dL Albumin/Globulin Ratio 0.6 L (1-2) RPR (NONREACTIVE) Blood Type Gel Antibody Screen Screen RhIG Candidate? Rhogam Indicated Micro Results - Last 24 Hours: Microbiology 06/08/19 07:50 Respiratory Syncytial Virus Ag Scrn - Final Nasopharyngeal Swab NEGATIVE RSV ANTIGEN REFERENCE RANGE: NEGATIVE 06/08/19 07:50 Influenza Type A Antigen Screen - Final Nasopharyngeal Swab NEGATIVE INFLUENZA A VIRUS AG REFERENCE RANGE: NEGATIVE Influenza Type B Antigen Screen - Final NEGATIVE INFLUENZA B VIRUS AG REFERENCE RANGE: NEGATIVE Med Orders - Current: Current Medications Acetaminophen (Tylenol) 650 mg PO Q4H PRN PRN Reason: Pain Last Admin: 06/08/19 17:42 Dose: 650 mg Benzocaine/Menthol (Dermoplast Pain Relief [place]) 0 gm TOP ASDIRECTED PRN PRN Reason: Perineal Comfort Measure Last Admin: 06/08/19 00:15 Dose: 1 can Sodium Chloride (Normal Saline) 45 mls @ 40 mls/hr IV ASDIRECTED DIGNA Last Admin: 06/08/19 08:46 Dose: 40 mls/hr Sodium Chloride (Saline Flush) 10 ml FLUSH ONETIME PRN PRN Reason: Keep Vein Open Last Admin: 06/08/19 08:46 Dose: 10 ml Witch Millie (Tucks) 1 pad TOP ASDIRECTED PRN PRN Reason: Pain Last Admin: 06/08/19 00:15 Dose: 1 tub Discontinued Medications Acetaminophen (Tylenol) 650 mg PO Q4H PRN PRN Reason: Pain (Mild 1-3) and fever Calcium Carbonate/Glycine (Tums) 1,000 mg PO Q2H PRN PRN Reason: Indigestion Diphenhydramine HCl (Benadryl) 25 mg IVPUSH Q6H PRN PRN Reason: pruritis Ephedrine Sulfate (Ephedrine Sulfate) 5 mg IVPUSH ASDIRECTED PRN PRN Reason: Hypotension Fentanyl (Sublimaze) 100 mcg EPIDUR Q3H PRN PRN Reason: Pain Last Admin: 06/07/19 22:25 Dose: 50 mcg Fentanyl/Bupivacaine HCl (Fentanyl/Bupivacaine/Ns 2 Mcg-0.125% 100 Ml) 100 ml EPIDUR ASDIRECTED PRN PRN Reason: Pain Last Admin: 06/07/19 14:55 Dose: 100 ml Lactated Ringer's (Ringers, Lactated) 1,000 mls @ 100 mls/hr IV ASDIRECTED DIGNA Last Infusion: 06/07/19 16:02 Dose: 100 mls/hr Oxytocin/Lactated Ringer's (Pitocin In Lr 10 Units/1,000 Ml) 10 unit in 1,000 mls @ 12 mls/hr IV TITRATE DIGNA; Protocol Oxytocin/Lactated Ringer's (Pitocin In Lr 10 Units/1,000 Ml) 10 unit in 1,000 mls @ 100 mls/hr IV .CONTINUOUS DIGNA Last Admin: 06/07/19 21:23 Dose: 100 mls/hr Ceftriaxone Sodium 2 gm/ (Sodium Chloride) 100 mls @ 200 mls/hr IV ONETIME ONE Stop: 06/08/19 04:16 Last Admin: 06/08/19 04:00 Dose: Not Given Ceftriaxone Sodium 2 gm/ (Sodium Chloride) 100 mls @ 200 mls/hr IV ONETIME ONE Stop: 06/08/19 04:27 Last Admin: 06/08/19 04:18 Dose: 200 mls/hr Ibuprofen (Motrin) 600 mg PO Q6H PRN PRN Reason: Mild pain or fever Iopamidol (Isovue-370 (76%)) 150 ml IARTIC ONETIME ONE Stop: 06/08/19 07:02 Last Admin: 06/08/19 08:45 Dose: 150 ml Misoprostol (Cytotec) Confirm Administered Dose 200 mcg .ROUTE .STK-MED ONE Stop: 06/07/19 21:27 Last Admin: 06/07/19 22:20 Dose: 600 mcg Nalbuphine HCl (Nubain) 10 mg IVPUSH Q2H PRN PRN Reason: Pain Last Admin: 06/07/19 12:01 Dose: 10 mg Ondansetron HCl (Zofran) 4 mg IVPUSH Q4H PRN PRN Reason: Nausea/Vomiting Sodium Chloride (Saline Flush) 10 ml FLUSH ASDIRECTED PRN PRN Reason: Keep Vein Open - Infant Interaction Infant Disposition, : to Nursery Infant Feeding: Other (see below) (pumping) Support Person: - Recovery Exam Fundal Tone: Firm Fundal Level: At Umbilicus Fundal Placement: Midline Lochia Amount: Small, Moderate Lochia Color: Rubra/Red Episiotomy/Laceration: Approximated Bladder Status: Voiding Urinary Elimination: Voided - Exam General: Alert, Oriented HEENT: Pupils Equal Neck: Supple Lungs: Clear to Auscultation, Other (tachypnea) Cardiovascular: Regular Rate, Regular Rhythm GI/Abdominal Exam: Normal Bowel Sounds, Soft, Non-Tender, No Organomegaly, No Distention, No Abnormal Bruit, No Mass, Pelvis Stable Extremities: Normal Inspection, Normal Range of Motion, Non-Tender, No Pedal Edema, Normal Capillary Refill, Other (scds on) Skin: Warm, Dry, Intact Wound/Incisions: Healing Well Neurological: No New Focal Deficit Psy/Mental Status: Alert, Normal Affect, Normal Mood - Problem List Review Problem List Initiated/Reviewed/Updated: Yes - My Orders Last 24 Hours: My Active Orders 06/07/19 23:58 Activity as Tolerated [RC] PER UNIT ROUTINE Vital Signs [RC] Q2HR Benzocaine/Menthol [Dermoplast Pain Relief [place]] See Dose Instructions TOP ASDIRECTED PRN rkistina Benjamin [Tucks] 1 pad TOP ASDIRECTED PRN Assess Lochia [WOMSER] Per Unit Routine Assess Uterine Involution [WOMSER] Per Unit Routine Breast Pump [WOMSER] Per Unit Routine Heat Therapy [OM.PC] PRN Medication Administration Instruction [OM.PC] Routine Perineal Care [OM.PC] Per Unit Routine Sitz Bath [OM.PC] Per Unit Routine 06/08/19 04:06 ANTIBODY IDENTIFICATION [BBK] Routine SCREEN [BBK] Routine RH IMMUNE GLOBULIN [BBK] Routine RHOGAM, [RHIG WORKUP, ] [BBK] Routine 06/08/19 06:48 CTA Chest W WO Contrast [Ang Chest] [CT] Stat 06/08/19 07:24 Isolation [COMM] Routine 06/08/19 07:35 Isolation [COMM] Routine 06/08/19 07:50 CORONAVIRUS COVID-19 PCR PHL Stat 06/08/19 10:00 Antiembolic Devices [RC] PER UNIT ROUTINE Pulse Oximetry Continuous Monitoring [OM.PC] Routine SCD [Sequential Compression Device] [OM.PC] Routine 06/08/19 11:16 Acetaminophen [Tylenol] 650 mg PO Q4H PRN 06/08/19 11:30 PROCALCITONIN [REF] Routine 06/08/19 23:55 CBC WITH MANUAL DIFF [HEME] Routine 06/08/19 23:58 Heat Therapy [OM.PC] PRN 06/08/19 Lunch Regular Diet [DIET] 06/10/19 05:11 CXR [Chest 1V Frontal] [CR] AM CBC WITH MANUAL DIFF [HEME] AM CMP [COMPREHENSIVE METABOLIC PN,CMP] [CHEM] AM 06/11/19 05:11 CBC WITH MANUAL DIFF [HEME] AM CMP [COMPREHENSIVE METABOLIC PN,CMP] [CHEM] AM 06/12/19 05:11 CMP [COMPREHENSIVE METABOLIC PN,CMP] [CHEM] AM - Assessment Assessment:: Doing reasonably well - saturations 96-99 on room air now. -afebrile -labs pending for morning. Worsening anemia by a small amount. Recheck again in AM -pain controlled and minimal lochia
[2019-06-09] MEDS ORDERED: Bupivacaine 0.25% 10 ML SDV ONE
[2019-06-09] MEDS ORDERED: Phenylephrine 1% 10 MG/ML SDV ONE
[2019-06-09] MEDS ORDERED: Lidocaine 1.5% with EPINEPHrine 1:200,000 5 ML Amp ONE
[2019-06-09] MEDS: Acetaminophen 325 MG Tab PO PRN ×4 (00:10→17:34)
[2019-06-09] MEDS ORDERED: Sodium Chloride 0.9% 250 ML IV SCH (02:15)
--- NOTE | 2019-06-09 09:43 | CR ---
Chest: Portable view of the chest was obtained. Comparison: No previous chest imaging is available. Heart size and mediastinum are normal. Lungs show no acute parenchymal change. Bony structures are grossly intact. Impression: 1. Nothing acute is identified on portable chest x-ray. Diagnostic code #1 Study was dictated in MDT
--- NOTE | 2019-06-09 10:49 | CT ---
CT chest Technique: Multiple axial sections were obtained from above the lung apices inferiorly through the lung bases. Intravenous contrast was utilized. Study performed as a pulmonary angiogram protocol. Findings: Pulmonary arteries are well-opacified. No filling defects are identified to indicate pulmonary embolism. Aorta shows no aneurysm. Mediastinum and hilar regions show no adenopathy. No pericardial thickening is seen. Visualized portions of the upper abdomen show small calcified gallstones partially visualized within the gallbladder. No other acute finding is appreciated within the upper abdomen. No axillary adenopathy is appreciated. Lungs show no acute parenchymal change. No pleural effusions are seen. Bone window settings were reviewed which shows no acute osseous finding. Impression: 1. No findings of pulmonary embolism. 2. Small partially visualized gallstones within the gallbladder. 3. No acute finding is otherwise seen on CT study of the chest. Diagnostic code #2 Study was dictated in MDT
[2019-06-09] MEDS: Benzocaine/Menthol 20%-0.5% Spray 56 GM Canister TOP PRN (17:34)
[2019-06-09] MEDS: Witch Hazel Medicated Pads 40/Jar TOP PRN (17:35)
--- NOTE | 2019-06-09 19:14 | PCM.DCSUM1 ---
Discharge Summary - Hospital Course Free Text/Narrative:: Admitted for labor. Progressed to [facility] with shoulder dystocia and hemorrhage. day zero began having significant tachypnea, oxygen desaturations and shortness of breath with activity coupled with low grade elevated temps times multiple checks to 99.9. CT scan at that time showed ground glass opacities. WBC increased and lymphocytes decreased although absolute lymphocyte count greater than 1200. Significant tachpnea and SOB persisted throughout morning on PPD2. Hgb also decreased and given pending covid and symptoms transfused 1 unit pRBC. Feeling better and desired discharge home after negative test. Repeat pending at suggestion of lab and state given false negative rate and CT findings. Diagnosis: Stroke: No - Discharge Data Discharge Date: 06/09/19 Discharge Disposition: Home, Self-Care 01 Condition: Good - Referral to Home Health Primary Care Physician: Sonal Thacker MD - Patient Instructions Diet: Usual Diet as Tolerated Activity: Apply Ice, No Strenuous Activities Activity, Other: pelvic rest Driving: Do Not Drive Showering/Bathing: May Shower Notify Provider of: Fever, Increased Pain, Swelling and Redness, Drainage, Nausea and/or Vomiting Other/Special Instructions: Check temp bid. Quarantine until test returns. - Discharge Plan *PRESCRIPTION DRUG MONITORING PROGRAM REVIEWED*: No *COPY OF PRESCRIPTION DRUG MONITORING REPORT IN PATIENT JOHANNA: No Home Medications: Home Meds Meclizine [Antivert] 12.5 mg PO TID PRN #21 tab 10/27/18 [Rx] Ondansetron [Zofran ODT] 4 mg PO ASDIRECTED PRN #20 tab.dis 10/27/18 [Rx] Calcium Carbonate [Tums] 500 mg PO 06/07/19 [History] Referrals: Sonal Thacker MD [Primary Care Provider] - (6 weeks) Angeles Amado MD [Physician] - (2-4 days, telemedicine) - Discharge Summary/Plan Comment DC Time >30 min.: Yes (education, testing and discussion of home care) - General Info Date of Service: 06/09/19 Functional Status: Reports: Pain Controlled - Review of Systems General: Reports: No Symptoms HEENT: Reports: No Symptoms Pulmonary: Reports: No Symptoms Cardiovascular: Reports: No Symptoms Gastrointestinal: Reports: No Symptoms Genitourinary: Reports: No Symptoms Musculoskeletal: Reports: No Symptoms Skin: Reports: No Symptoms Neurological: Reports: No Symptoms Psychiatric: Reports: No Symptoms - Patient Data Vitals - Most Recent: Last Vital Signs Temp 36.4 C 06/09/19 17:41 Pulse 82 06/09/19 17:41 Resp 22 H 06/09/19 17:37 BP 112/62 06/09/19 17:37 Pulse Ox 99 06/09/19 17:41 Weight - Most Recent: 103.646 kg I&O - Last 24 hours: Intake & Output 06/09/19 06/09/19 06/09/19 06:59 14:59 22:59 Intake Total 007 528 5791 Output Total 300 1600 500 Balance 500 -1075 580 Lab Results - Last 24 hrs: Laboratory Results - last 24 hr 06/08/19 06/08/19 06/08/19 Range/Units 04:06 07:50 11:30 WBC (3.98-10.04) K/mm3 RBC (3.98-5.22) M/mm3 Hgb (11.2-15.7) gm/dl Hct (34.1-44.9) % MCV (79.4-94.8) fl MCH (25.6-32.2) pg MCHC (32.2-35.5) g/dl RDW Std Deviation (36.4-46.3) fL Plt Count (182-369) K/mm3 MPV (9.4-12.3) fl Neutrophils % (Manual) (40-60) % Band Neutrophils % (0-10) % Lymphocytes % (Manual) (20-40) % Atypical Lymphs % % Monocytes % (Manual) (2-10) % Eosinophils % (Manual) (0.7-5.8) % Basophils % (Manual) (0.1-1.2) Toxic Granulation Platelet Estimate Plt Morphology Comment Hypochromasia Anisocytosis Microcytosis Ovalocytes RBC Morph Comment Sodium (136-145) mEq/L Potassium (3.5-5.1) mEq/L Chloride (98-107) mEq/L Carbon Dioxide (21-32) mEq/L Anion Gap (5-15) BUN (7-18) mg/dL Creatinine (0.55-1.02) mg/dL Est Cr Clr Drug Dosing mL/min Estimated GFR (MDRD) (>60) mL/min BUN/Creatinine Ratio (14-18) Glucose (74-106) mg/dL Calcium (8.5-10.1) mg/dL Total Bilirubin (0.2-1.0) mg/dL AST (15-37) U/L ALT (14-59) U/L Alkaline Phosphatase (46-116) U/L Total Protein (6.4-8.2) g/dl Albumin (3.4-5.0) g/dl Globulin gm/dL Albumin/Globulin Ratio (1-2) Procalcitonin 0.28 H (<0.10) ng/mL COVID-19 PCR Not detected (NOT DETECT) Blood Type A NEGATIVE Gel Antibody Screen Positive Antibody Identification Anti-D Screen 3 ros/5 flds - neg RhIG Candidate? Yes Rhogam Indicated Yes, baby rh pos H Crossmatch See Detail 06/09/19 06/09/19 06/09/19 Range/Units 00:29 08:30 08:30 WBC 18.98 H 16.92 H (3.98-10.04) K/mm3 RBC 2.77 L 3.23 L (3.98-5.22) M/mm3 Hgb 7.7 L 9.2 L D (11.2-15.7) gm/dl Hct 24.7 L 29.1 L (34.1-44.9) % MCV 89.2 90.1 (79.4-94.8) fl MCH 27.8 28.5 (25.6-32.2) pg MCHC 31.2 L 31.6 L (32.2-35.5) g/dl RDW Std Deviation 44.8 45.7 (36.4-46.3) fL Plt Count 123 L 121 L (182-369) K/mm3 MPV 12.3 12.9 H (9.4-12.3) fl Neutrophils % (Manual) 67 H 77 H (40-60) % Band Neutrophils % 7 0 (0-10) % Lymphocytes % (Manual) 17 L 13 L (20-40) % Atypical Lymphs % 0 0 % Monocytes % (Manual) 9 9 (2-10) % Eosinophils % (Manual) 0 L 1 (0.7-5.8) % Basophils % (Manual) 0 L 0 L (0.1-1.2) Toxic Granulation 2+ moderate Platelet Estimate Decreased Adequate Plt Morphology Comment See note Hypochromasia 1+ slight Anisocytosis 3+ marked Microcytosis 3+ marked Ovalocytes 2+ moderate RBC Morph Comment Not Reportable Abnormal Sodium 138 (136-145) mEq/L Potassium 4.0 (3.5-5.1) mEq/L Chloride 107 (98-107) mEq/L Carbon Dioxide 23 (21-32) mEq/L Anion Gap 12.0 (5-15) BUN 8 (7-18) mg/dL Creatinine 0.7 (0.55-1.02) mg/dL Est Cr Clr Drug Dosing 114.01 mL/min Estimated GFR (MDRD) > 60 (>60) mL/min BUN/Creatinine Ratio 11.4 L (14-18) Glucose 79 (74-106) mg/dL Calcium 7.9 L (8.5-10.1) mg/dL Total Bilirubin 0.3 (0.2-1.0) mg/dL AST 27 (15-37) U/L ALT 18 (14-59) U/L Alkaline Phosphatase 109 (46-116) U/L Total Protein 5.1 L (6.4-8.2) g/dl Albumin 2.1 L (3.4-5.0) g/dl Globulin 3.0 gm/dL Albumin/Globulin Ratio 0.7 L (1-2) Procalcitonin (<0.10) ng/mL COVID-19 PCR (NOT DETECT) Blood Type Gel Antibody Screen Antibody Identification Screen RhIG Candidate? Rhogam Indicated Crossmatch Med Orders - Current: Current Medications Acetaminophen (Tylenol) 650 mg PO Q4H PRN PRN Reason: Pain Last Admin: 06/09/19 17:34 Dose: 650 mg Benzocaine/Menthol (Dermoplast Pain Relief [place]) 0 gm TOP ASDIRECTED PRN PRN Reason: Perineal Comfort Measure Last Admin: 06/09/19 17:34 Dose: 1 can Sodium Chloride (Normal Saline) 45 mls @ 40 mls/hr IV ASDIRECTED DIGNA Last Admin: 06/08/19 08:46 Dose: 40 mls/hr Sodium Chloride (Normal Saline) 250 mls @ 50 mls/hr IV ASDIRECTED DIGNA Last Admin: 06/09/19 04:10 Dose: 50 mls/hr Sodium Chloride (Saline Flush) 10 ml FLUSH ONETIME PRN PRN Reason: Keep Vein Open Last Admin: 06/08/19 08:46 Dose: 10 ml Witch Millie (Tucks) 1 pad TOP ASDIRECTED PRN PRN Reason: Pain Last Admin: 06/09/19 17:35 Dose: 1 tub Discontinued Medications Acetaminophen (Tylenol) 650 mg PO Q4H PRN PRN Reason: Pain (Mild 1-3) and fever Calcium Carbonate/Glycine (Tums) 1,000 mg PO Q2H PRN PRN Reason: Indigestion Diphenhydramine HCl (Benadryl) 25 mg IVPUSH Q6H PRN PRN Reason: pruritis Ephedrine Sulfate (Ephedrine Sulfate) 5 mg IVPUSH ASDIRECTED PRN PRN Reason: Hypotension Fentanyl (Sublimaze) 100 mcg EPIDUR Q3H PRN PRN Reason: Pain Last Admin: 06/07/19 22:25 Dose: 50 mcg Fentanyl/Bupivacaine HCl (Fentanyl/Bupivacaine/Ns 2 Mcg-0.125% 100 Ml) 100 ml EPIDUR ASDIRECTED PRN PRN Reason: Pain Last Admin: 06/07/19 14:55 Dose: 100 ml Lactated Ringer's (Ringers, Lactated) 1,000 mls @ 100 mls/hr IV ASDIRECTED DIGNA Last Infusion: 06/07/19 16:02 Dose: 100 mls/hr Oxytocin/Lactated Ringer's (Pitocin In Lr 10 Units/1,000 Ml) 10 unit in 1,000 mls @ 12 mls/hr IV TITRATE DIGNA; Protocol Oxytocin/Lactated Ringer's (Pitocin In Lr 10 Units/1,000 Ml) 10 unit in 1,000 mls @ 100 mls/hr IV .CONTINUOUS DIGNA Last Admin: 06/07/19 21:23 Dose: 100 mls/hr Ceftriaxone Sodium 2 gm/ (Sodium Chloride) 100 mls @ 200 mls/hr IV ONETIME ONE Stop: 06/08/19 04:16 Last Admin: 06/08/19 04:00 Dose: Not Given Ceftriaxone Sodium 2 gm/ (Sodium Chloride) 100 mls @ 200 mls/hr IV ONETIME ONE Stop: 06/08/19 04:27 Last Admin: 06/08/19 04:18 Dose: 200 mls/hr Ibuprofen (Motrin) 600 mg PO Q6H PRN PRN Reason: Mild pain or fever Iopamidol (Isovue-370 (76%)) 150 ml IARTIC ONETIME ONE Stop: 06/08/19 07:02 Last Admin: 06/08/19 08:45 Dose: 150 ml Misoprostol (Cytotec) Confirm Administered Dose 200 mcg .ROUTE .STK-MED ONE Stop: 06/07/19 21:27 Last Admin: 06/07/19 22:20 Dose: 600 mcg Nalbuphine HCl (Nubain) 10 mg IVPUSH Q2H PRN PRN Reason: Pain Last Admin: 06/07/19 12:01 Dose: 10 mg Ondansetron HCl (Zofran) 4 mg IVPUSH Q4H PRN PRN Reason: Nausea/Vomiting Sodium Chloride (Saline Flush) 10 ml FLUSH ASDIRECTED PRN PRN Reason: Keep Vein Open - Exam General: Reports: Alert, Oriented HEENT: Reports: Pupils Equal, Pupils Reactive, EOMI, Mucous Membr. Moist/[place] Neck: Reports: Supple Lungs: Reports: Clear to Auscultation, Other (slight increased RR - 30) Cardiovascular: Reports: Regular Rate, Regular Rhythm GI/Abdominal Exam: Normal Bowel Sounds, Soft, Non-Tender, No Organomegaly, No Distention, No Abnormal Bruit, No Mass, Pelvis Stable (Female) Exam: Normal Bimanual Exam Rectal (Female) Exam: Normal Exam, Normal Rectal Tone Back Exam: Reports: Normal Inspection, Full Range of Motion Extremities: Normal Inspection, Normal Range of Motion, Non-Tender, No Pedal Edema, Normal Capillary Refill Skin: Reports: Warm, Dry, Intact Wound/Incisions: Reports: Healing Well Neurological: Reports: No New Focal Deficit Psy/Mental Status: Reports: Alert, Normal Affect, Normal Mood
== END 2019-06-09 20:35 | disposition home or self-care (01) | DRG 560 ==
LOC: JD.OBCHECK 05:14 → JD.OB 05:24 → JD.OBCHECK 06:10 → OBSVTOIN 21:15 → JD.OB 21:15 → JD.MS 06-08 07:52 → UNDODISIN 06-09 20:35
PROVIDERS: ADMIT Obstetrics & Gynecology; ATTEND Obstetrics & Gynecology
PROC: 10D07Z6 Extraction of Products of Conception, Vacuum, Via Natural or Artificial Opening (ICD-10-PCS; principal; 2019-06-07)
PROC: 0HQ9XZZ Repair Perineum Skin, External Approach (ICD-10-PCS; 2019-06-07)
PROC: 3E0R3BZ Introduction of Anesthetic Agent into Spinal Canal, Percutaneous Approach (ICD-10-PCS; 2019-06-07)
PROC: 10907ZC Drainage of Amniotic Fluid, Therapeutic from Products of Conception, Via Natural or Artificial Opening (ICD-10-PCS; 2019-06-07)
PROC: 8E0ZXY6 Isolation (ICD-10-PCS; 2019-06-08)
PROC: 30233N1 Transfusion of Nonautologous Red Blood Cells into Peripheral Vein, Percutaneous Approach (ICD-10-PCS; 2019-06-09)
DX: O48.0 Post-term pregnancy (principal); O66.0 Obstructed labor due to shoulder dystocia; O42.92 Full-term premature rupture of membranes, unspecified as to length of time between rupture and onset of labor; O70.0 First degree perineal laceration during delivery; O77.0 Labor and delivery complicated by meconium in amniotic fluid; Z3A.40 40 weeks gestation of pregnancy; Z37.0 Single live birth; O72.1 Other immediate postpartum hemorrhage; Z20.828 Contact with and (suspected) exposure to other viral communicable diseases
CPT/HCPCS: 01967; 36415; 36430; 51701; 59025; 59409; 71045; 71045-26; 71275; 71275-26; 80053; 82728; 83615; 84112; 84145; 85007; 85025; 85027; 85461; 86140; 86592; 86850; 86870; 86900; 86901; 86902; 86922; 87804; 87807; 94762; A9270-GY; J0696; J2300; J2370; J2590; J2790; J3010; J3490; J7050; J7120; P9016; Q9967; U0002